=== PATIENT | female | born 1965 | race Caucasian/White ===

== ENCOUNTER → 2016-12-31 | Day surgery (SDC) | payer MEDICARE, OTHER ==
[~2016-12-31] MED LIST: ALDACTONE100 MG PO; CARAFATE1 GM PO; DESYREL100 MG PO; DEXILANT60 MG PO; DICYCLOMINE HCL10 MG PO; DULOXETINE HCL60 MG PO; GABAPENTIN300 M2 PO; KLONOPIN1 MG PO; LIOTHYRONINE S25 MCG PO; MIRAPEX PO; MULTI VITAMIN1 EACH PO; OXYCODONE HCL E15 MG PO; SINGULAIR PO; ZANTAC300 MG PO; [UNRECOGNIZED DRUG - OTHER] PO
--- NOTE | ~2016-12-31 | CR301 ---
[facility] A Service of [facility] & [facility] RADIOLOGY TEXT RESULTS PATIENT: ANTHONY FERNANDEZ LOCATION: [facility] : 63 UNIT #: [id number] AGE: [address]: Tre Christensen MD SEX: F ORDER DR: [id number] [facility] [address] [place], [place] [address] [id number] O MR#: [id number] Acc #: [id number] NAME: ANTHONY FERNANDEZ : 1965 SEX: F STUDY DATE/TIME: 12/31/2016 10:38 UNIT: [facility] ROOM: STUDY DESCRIPTION: CR Fluoro Guide NDL Cath Spine Attending Physician: Tre Christensen M.D. Ordering Physician: Tre Christensen M.D. Primary Care Physician: Hermes Longoria M.D. MEDICAL IMAGING REPORT This report is preliminary unless electronic signature is present EXAM Intraoperative x-rays of the spine INDICATIONS 51-year-old female with pain pump insertion. FLUOROSCOPY TIME 0.14 minutes FINDINGS 3 images were submitted demonstrating a catheter in the spinal canal as well as a instrument superimposed over the lumbar spine. Please refer to procedure report for complete detail. Dictated by... Jered Jimenez M.D. THIS IS AN ELECTRONICALLY VERIFIED REPORT Jered Jimenez M.D. at 01/01/2017 8:39 AM ARS/to TD: 12/31/2016 19:55 JOB #: [id number] MEDICAL IMAGING REPORT Page 1 of 1 COPY
--- NOTE | ~2016-12-31 | OR ---
Unit #: [id number] #: [id number] Patient: ADDIS MAHAN [id number] [address] [address] [id number] O MR#: [id number] NAME: ADDIS MAHAN ROOM: Date of Procedure: 12/31/2016 Admission Date: 12/31/2016 Surgeon: Tre Christensen M.D. : 1965 Attending Physician: Tre Christensen M.D. Primary Care Physician: Hermes Longoria M.D. OPERATIVE REPORT PREOPERATIVE DIAGNOSES 1. Multilevel degenerative disk disease, lumbar. 2. Chronic pain syndrome. POSTOPERATIVE DIAGNOSES 1. Multilevel degenerative disk disease, lumbar. 2. Chronic pain syndrome. PROCEDURES PERFORMED 1. Implantation of SynchroMed II implanted intrathecal pump. 2. Implantation of Ascenda catheter [employer]. 3. Physician filling a pump. 4. Fluoroscopy. SURGICAL INDICATION AND RATIONALE Ms. Addis Mahan is a pleasant 51-year-old female who has been suffering from chronic intractable pain both in the low back and down the lower extremities. The patient has a diagnosis of multilevel degenerative disk disease with chronic pain syndrome with long-term use of oral opioids. The patient has undergone various treatment option including physical therapy, home exercises, muscle relaxants, oral opioids, and escalating doses with little relief. The patient did undergo an epidural pain pump trial in which she had about 80% to 90% reduction in pain. The patient has undergone a psychometric evaluation along with a cardiac clearance both of which did not show any contraindications. The patient also has undergone an extensive education process where the risks, benefits, and alternatives available regarding this pump were discussed including the consent decree. I have gone through the consent decree in a language that was understandable for the patient in which I discussed the various aspects of the consent decree and the alternatives and risks and benefits associated with it. I used a teach-back method to ascertain that the patient understood my explanations. The patient also has undergone an education process with [employer] outbound sales representative Shireen Prince in which she had also discussed the consent decree in great detail and all the risks, benefits, and alternatives were discussed with her. The patient is here to have an implanted pain pump placed today. DESCRIPTION OF PROCEDURE After obtaining full informed consent and after discussion with the patient and possible complications including infection, bleeding, paralysis, mild headaches, , and other perioperative complications were discussed with the patient and consent was obtained in front of Unit #: [id number] #: [id number] Patient: ELIZABETH MAHANA nurse Anastacia. The patient was then taken back to the operating room where the anesthesiologist induced general anesthesia after standard monitors are placed and positioned the patient in the left lateral decubitus position with all pressure points padded under his guidance. The patient was then prepped and draped in the usual fashion. I preoperatively marked out an area in the right side of her abdomen and this area was anesthetized with a mixture of 0.5% Marcaine along with 1% lidocaine with epinephrine. An incision was made with a #10 blade and without much difficulty, I was able to use the Bovie and fashioned a pocket to house the intrathecal pump. Once the pocket was created, it was copiously irrigated with irrigant. I then visualized the spine under fluoroscopy and identified the L2-3 interspace. After the skin target place was anesthetized, I made an incision measuring about 3.5 cm in length. With the help of the Bovie, I was able to undermine the subcutaneous tissue to create a space to house the Ascenda catheter. I then placed under fluoroscopy guidance, a 17 gauge Tuohy needle to access the intrathecal space, which was achieved at the L1-2 interspace. I was able to get clear CSF at first pass and I then navigated the Ascenda catheter through the Tuohy needle to reach the upper border of T7. This was done under live fluoroscopic view. The catheter tip was then held below the patient level and I was able to see a droplet of CSF forming. This represents that the catheter is in correct position. I then anchored the catheter using a special anchoring device to the interspinous ligament. This anchor was then secured to the underlying tissue using 3-0 Prolene sutures. This incision was also copiously irrigated with irrigant. I then used a tunneling device to tunnel this catheter from the lumbar incision to the abdominal pocket. This catheter was then cut to size, then I used a special adapter to connect this piece of catheter to the catheter connecting the SynchroMed II pump. Once the pathway was connected, I aspirated through the sideport using a 24 gauge Tony needle and I was able to obtain CSF. This means the entire system is intact and that the catheter is in intrathecal space. I then placed the powdered vancomycin into the pocket and to the lumbar incision and placed the pump into the pocket and secured it using the underlying anchors with 3-0 Prolene sutures. Once this was done, the 2 incisions were carefully inspected and closed using 3-0 interrupted Vicryl sutures in 2 layers. I then approximated the skin with gustavo. The patient was then brought back to the recovery room for neurological monitoring. PLAN OF CARE The patient had an uneventful recovery and was discharged home neurologically intact with plans to return to my office in 7 days to have her gustavo removed. The patient was prescribed a prescription for hydrocodone 5/325 to take 1 pill q.i.d. for incisional pain. The patient's pump contains hydromorphone at a concentration of 5 mg/mL and her daily dose is 0.45 mg per day. I have also given the patient a Personal Sales Service Assistant, which will allow her to receive 0.02 mg with 2 activations per 24 hours. If she activates both the PTM doses along with her infusion dose, she would receive 0.5 mg per day. The patient's [employer] SynchroMed pump serial #[id number], the Ascenda catheter [id number], and the PTM [id number]. Dictated by... Carolee Chino/joceline Unit #: [id number] #: [id number] Patient: ADDIS MAHAN TD: 12/31/2016 23:25 JOB #: [id number] OPERATIVE REPORT Page 1 of 1 X Tre Christensen MD PROCEDURE OPERATIVE NOTE
--- NOTE | ~2016-12-31 | EKG ---
PATIENT: ANTHONY FERNANDEZ UNIT #: [id number] Ventricular Rate: 88 BPM Atrial Rate: 88 BPM P-R Interval: 146 ms QRS Duration: 80 ms Q-T Interval: 364 ms QTC Calculation(Bezet): 440 ms P Mccoll: 49 degrees Calculated R Mccoll: 71 degrees Calculated T Mccoll: 33 degrees Diagnosis Line: Normal sinus rhythm Diagnosis Line: Low voltage QRS Diagnosis Line: Poor R wave progression questionable lead position Diagnosis Line: or body habitus Otherwise normal ECG Diagnosis Line: No previous ECGs available Diagnosis Line: Confirmed by JILL WINCHESTER MD ([id number]) on 01/01/2017 Diagnosis Line: 9:19:12 AM INTERPRETING MD: ANNABELLA MALONE
[2016-12-31 10:37] LABS: BLOOD UREA NITROGEN 13 mg/dL (9-23); BUN/CREATININE RATIO 21.66; CALCIUM SERUM 9.3 mg/dL (8.4-10.2); CARBON DIOXIDE 25 mmol/L (22-31); CHLORIDE 106 mmol/L (100-111); CREATININE SERUM 0.6 mg/dL (0.6-1.4); GLOM FILT RATE Estimated ABOVE60 mL/min (>60); GLUCOSE FASTING 108 mg/dL (70-110); POTASSIUM 3.8 mmol/L (3.5-5.1); SODIUM 139 mmol/L (135-145)
== END | disposition home or self-care (01) ==
LOC: CSUR 09:30
PROVIDERS: Specialist
DX: G89.4 Chronic pain syndrome (principal); M51.36 Other intervertebral disc degeneration, lumbar region; I10 Essential (primary) hypertension; J40 Bronchitis, not specified as acute or chronic; E03.9 Hypothyroidism, unspecified; K21.9 Gastro-esophageal reflux disease without esophagitis; G25.81 Restless legs syndrome; M19.90 Unspecified osteoarthritis, unspecified site; F17.210 Nicotine dependence, cigarettes, uncomplicated; Z79.891 Long term (current) use of opiate analgesic; Z79.899 Other long term (current) drug therapy; Z90.49 Acquired absence of other specified parts of digestive tract; Z98.890 Other specified postprocedural states
CPT/HCPCS: 77003; 80048; 93005; C1772; J0690; J1100; J1170; J2250; J2405; J3010; J3370